=== PATIENT | female | born 1965 | race Caucasian/White ===

== ENCOUNTER → 2024-02-25 10:14 | Outpatient (CLI) | payer BC, SELFPAY ==
--- NOTE | 2024-02-25 10:16 | DI.CT.S_ITS ---
PROCEDURE: CT CHEST WO CON INDICATIONS: Fu 9mm BIN lung nodule and cluster of nodules @ [place] TECHNIQUE: Noncontrast 5 mm thick sections acquired from the pulmonary apices to the posterior costophrenic angles. 1 mm lung window, 5 mm thick coronal and sagittal and 7 mm axial MIP reformats were then acquired. For radiation dose reduction, the following was used: automated exposure control, adjustment of mA and/or kV according to patient size. COMPARISON: [facility], CT, CT CHEST WITHOUT CONTRAST, 07/09/2023, 7:45. FINDINGS: Image quality: Diagnostic. Lungs and Pleura: Moderate centrilobular emphysematous change. Solid perivascular nodule centrally in the left upper lobe measures 0.8 x 0.6 cm, 3/141, previously 1.0 x 0.6 cm when remeasured. Minor bronchial wall thickening in the anterior medial left upper lobe, 3/178. Scattered bilateral central perihilar bronchial wall thickening and a few areas of mucous plugging, superior segment right lower lobe. No ground-glass opacities, consolidations, or pleural effusions. Lower Neck: No enlarged lymph nodes. Thyroid: Normal CT appearance. Axillae: No enlarged lymph nodes. Chest Wall: No suspicious chest wall mass. Bones: No suspicious bone lesions. Mild degenerative changes in the thoracic spine. Heart: Heart size is normal. No pericardial effusion. Moderate coronary artery calcification. Thoracic Vessels: The aorta and pulmonary arteries demonstrate normal size. Mediastinum and Tana: No enlarged lymph nodes. Esophagus: No wall thickening. No hiatal hernia. Upper Abdomen: Visualized upper abdomen solid organs and bowel loops appear normal. IMPRESSION: Stable solid 0.8 cm left upper lobe lung nodule. This has demonstrated stability and is benign. Recommend continue low-dose chest CT screening is lungs the patient meets established criteria. Coronary artery calcifications. Dictated by: Silvana Humphries M.D. on 02/25/2024 at 14:17 Approved by: Silvana Humphries M.D. on 02/25/2024 at 14:27
== END ==
PROVIDERS: PCP Nurse Practitioner Family; Referring Provider Internal Medicine; Visit Provider Internal Medicine
DX: J44.89 Other specified chronic obstructive pulmonary disease (principal); R91.1 Solitary pulmonary nodule; I25.10 Atherosclerotic heart disease of native coronary artery without angina pectoris
CPT/HCPCS: 71250